=== PATIENT | male | born 1970 | race Caucasian/White ===

== ENCOUNTER 2021-10-13 17:41 | Emergency (ER) | payer OTHER ==
[~2021-10-13] VITALS: Ht 175.3 cm; Wt 95.3 kg
[2021-10-13 18:01] VITALS: BP 149/77
--- NOTE | 2021-10-13 18:05 | NUR ---
PT W/C ASSSISTED TO BED 8.
[2021-10-13] MEDS ORDERED: KETOROLAC 60 MG/2 ML VIAL IM ONE (18:15)
--- NOTE | 2021-10-13 18:20 | NUR ---
51 Y/O M C/O RIGHT CALF PAIN 02/07 , PAIN STARTED ONE WEEK AGO ON AND OFF. SWELLING X TODAY. NKA PMH: PRE DM, KIDNEY DISEASE
--- NOTE | 2021-10-13 19:18 | NUR ---
ULTRASOUND AT BEDSIDE.
--- NOTE | 2021-10-13 19:20 | NUR ---
GAVE REPORT TO LINN MCCLOUD.
--- NOTE | 2021-10-13 20:30 | NUR ---
Dr. Pierson examining patient.
--- NOTE | 2021-10-13 20:36 | NUR ---
PT MOVED TO ER CHAIR C
[2021-10-13 21:06] LABS: BASOPHILS # (AUTO) 0.1 K/uL (0.00-0.22); BASOPHILS % (AUTO) 0.7 % (0.0-2.0); EOSINOPHILS # (AUTO) 0.3 K/uL (0-0.4); HEMATOCRIT 46.3 % (36-52); HEMOGLOBIN 15.7 g/dL (12.0-18.0); LYMPHOCYTES # (AUTO) 2.6 K/uL (2.0-11.5); LYMPHOCYTES % (AUTO) 19.2 % (20.5-51.1); MEAN CORPUSCULAR HEMOGLOBIN 30 pg (27-31); MEAN CORPUSCULAR HGB CONC 34 g/dL (33-37); MEAN CORPUSCULAR VOLUME 89.4 fL (80-94); MONOCYTES # (AUTO) 1.3 K/uL (0.8-1.0); MONOCYTES % (AUTO) 9.3 % (1.7-9.3); NEUTROPHILS # (AUTO) 9.3 K/uL (1.8-7.7); NEUTROPHILS % (AUTO) 68.8 % (42.2-75.2); PLATELET COUNT (AUTO) 309 K/uL (140-450); RED BLOOD CELL COUNT(AUTO) 5.17 MIL/uL (4.20-6.10); RED CELL DISTRIBUTION WIDTH 13.1 % (11.6-13.7); WHITE BLOOD COUNT (AUTO) 13.5 K/uL (4.8-10.8)
[2021-10-13 21:22] LABS: PROTHROMBIN TIME 9.9 secs (10.8-13.4)
[2021-10-13 21:28] LABS: ALBUMIN 3.8 g/dL (3.4-5.0); ANION GAP 8.1 (8-16); CREATININE 1.2 mg/dL (0.6-1.3); POTASSIUM 4.1 mmol/L (3.5-5.1); TOTAL BILIRUBIN 0.3 mg/dL (0.0-1.0)
[2021-10-13] MEDS ORDERED: ACET-8386 PO (22:35)
[2021-10-13] MEDS ORDERED: IBUP-2213 PO (22:35)
[2021-10-13 22:45] VITALS: BP 124/78
--- NOTE | 2021-10-13 22:45 | NUR ---
Patient discharged with v/s stable. Written and verbal after care instructions given and explained. Patient alert, oriented and verbalized understanding of instructions. Ambulatory with steady gait. All questions addressed prior to discharge. ID band removed. Patient advised to follow up with PMD. Rx of HYDROCODONE, IBUPROFEN given. Patient educated on indication of medication including possible reaction and side effects. Opportunity to ask questions provided and answered.
== END 2021-10-13 22:45 | disposition home or self-care (01) ==
LOC: MED 17:41
DX: M79.661 Pain in right lower leg (principal); F17.200 Nicotine dependence, unspecified, uncomplicated
CPT/HCPCS: 36415; 71045; 80053; 85025; 85610; 85730; 93971; 96372; 99285; J1885; Q0092